=== PATIENT | female | born 1950 | race Caucasian/White ===

== ENCOUNTER 2020-07-01 11:41 | Day surgery (SDC) | payer MEDICARE, OTHER ==
[~2020-07-01] VITALS: Ht 175.3 cm; Wt 99.7 kg
[~2020-07-01 11:41] MED LIST: ELIQUIS5 MG PO; LISI5 PO; LORA1SY PO; MELO7.5 PO; NAPR220 PO; RANI150 PO
[2020-07-01] MEDS ORDERED: TELM20 PO (11:59)
== END 2020-07-01 13:54 | disposition home or self-care (01) ==
LOC: ORSCSDS 11:41
PROVIDERS: Surgery
PROC: 0DBN8ZX Excision of Sigmoid Colon, Via Natural or Artificial Opening Endoscopic, Diagnostic (ICD-10-PCS; principal; 2020-07-01 13:00)
PROC: 0DBH8ZX Excision of Cecum, Via Natural or Artificial Opening Endoscopic, Diagnostic (ICD-10-PCS; principal; 2020-07-01 13:00)
DX: Z12.11 Encounter for screening for malignant neoplasm of colon (principal); D12.0 Benign neoplasm of cecum; D12.5 Benign neoplasm of sigmoid colon; I10 Essential (primary) hypertension; K21.9 Gastro-esophageal reflux disease without esophagitis; E78.00 Pure hypercholesterolemia, unspecified; G47.33 Obstructive sleep apnea (adult) (pediatric); Z87.891 Personal history of nicotine dependence; I48.91 Unspecified atrial fibrillation; E66.01 Morbid (severe) obesity due to excess calories; Z68.33 Body mass index [BMI] 33.0-33.9, adult; R73.03 Prediabetes; Z79.84 Long term (current) use of oral hypoglycemic drugs
CPT/HCPCS: 82947; 88305; J2704; J7120

== ENCOUNTER → 2022-04-11 | Outpatient (CLI) | payer MEDICARE, OTHER ==
[~2022-04-11] MED LIST changes: +TELM20 PO
[2022-04-11 15:44] LABS: Microalb/Creat Ratio UR, Rand Unable to Calculate mg/g (0.000-30.000); Microalbumin, Random Urine <5.000 mg/L (0.000-20.000)
== END | disposition home or self-care (01) ==
LOC: LAB SHORT 13:00
PROVIDERS: Nurse Practitioner Family
DX: E11.9 Type 2 diabetes mellitus without complications (principal)
CPT/HCPCS: 82043; 82570

== ENCOUNTER 2024-08-26 07:17 | Day surgery (SDC) | payer MEDICARE, OTHER ==
[2024-08-26] VITALS (10 sets, daily range): BP systolic 126–158; BP diastolic 74–109
[~2024-08-26] VITALS: Ht 175.3 cm; Wt 97.5 kg
[~2024-08-26 07:17] MED LIST changes: +ASPI325 PO; +CLOP75 PO; +Crestor40 MG PO; +DILT60ER PO; +METO50 PO; +MOBIC15 MG PO; +TRULICITY0.75 MG/01 SQ
[2024-08-26] MEDS ORDERED: NS 500 ML IV ONE (08:41)
[2024-08-26] MEDS ORDERED: Nitroglycerin 2 MG/20 ML BTL ONE (08:42)
[2024-08-26] MEDS ORDERED: Heparin Sodium 1000 Units/ML 10ML MDV ONE (08:42)
[2024-08-26] MEDS ORDERED: NS 1,000 ML IV ONE ×2 (08:42→09:12)
[2024-08-26] MEDS ORDERED: FentaNYL Citrate 50 MCG/ML 2 ML Injection ONE ×2 (09:12→10:06)
[2024-08-26] MEDS ORDERED: Midazolam HCl 1MG / ML 2ML Vial ONE ×2 (09:12→10:06)
[2024-08-26] MEDS ORDERED: Alteplase Recombinant 2 MG / Vial ONE (10:03)
--- NOTE | 2024-08-26 10:36 | NUR ---
PT BACK TO RECOVERY ROOM. DR AUGILAR AT BEDSIDE TO UPDATE PT. PT DEMONSTRATES CORRECT UNDERSTANDING TO KEEP HEAD AND LEGS FLAT. R GROIN SITE SOFT AND NON TENDER. NO BLEEDING OR HEMATOMA NOTED.
[2024-08-26] MEDS ORDERED: ADALAT CC30 M2 PO (10:42)
--- NOTE | 2024-08-26 10:47 | NUR ---
NEW PRESCRIPTION CALLED INTO [facility] PER PT REQUEST. DR AGUILAR IN TO SPEAK WITH PT AND FAMILY. PT ALERT AND ORIENTED.
--- NOTE | 2024-08-26 12:15 | NUR ---
PT SITE ASSESED, SMALL AMOUNT OF OOZE ON BANDAGE BUT SITE SOFT, PT UP TO BATHROOM. UPON RETURN SITE REASSESSED AND ADDITIONAL OOZING NOTED TO DRESSING. PT. LAYED DOWN IN BED. NEW JUAN PLACED TO SITE, SITE HAS SMALL HEMATOMA FELT, PRESSURE HELD FOR APPROX 10 MIN SITE REMAINS UNCHANGED, NO SWELLING OR WORSENING OF SYMPTOMS. PT DENIES BACK PAIN, PULSES UNCHANGED. JUNE RT TO BEDSIDED TO ASSESS WELL. SITE REMAINS UNCHANGED, NO FURTHER OOZING TO JUAN NOTED.
--- NOTE | 2024-08-26 12:59 | NUR ---
R GROIN SITE UNCHANGED. NO BLEEDING, HEMATOMA UNCHANGED. NO PAIN.
--- NOTE | 2024-08-26 13:05 | NUR ---
PT AND FAMILY VERBALIZE D/C INSTRUCTIONS.
--- NOTE | 2024-08-26 13:28 | NUR ---
NO BLEEDING OR CHANGE OF GROIN SITE. PT SAT UP AND GETTING DRESSED. PT FAMILY ASSISTING. IV D/C CATHETER INTACT, PRESSURE DRESSING APPLIED. PT WHEELED OUT OF DEPT WITH D/C PACKET IN HAND. PT REMINDED TO TAKE IT EASY AND HAVE FAMILY DOCK WORKER HER NEW MEDICATION.
== END 2024-08-26 13:32 | disposition home or self-care (01) ==
LOC: MHTC 07:17
DX: I75.023 Atheroembolism of bilateral lower extremities (principal); I73.9 Peripheral vascular disease, unspecified; E78.00 Pure hypercholesterolemia, unspecified; I48.92 Unspecified atrial flutter; I10 Essential (primary) hypertension; G89.29 Other chronic pain; K21.9 Gastro-esophageal reflux disease without esophagitis; Z88.2 Allergy status to sulfonamides; Z88.8 Allergy status to other drugs, medicaments and biological substances; Z79.82 Long term (current) use of aspirin; Z79.899 Other long term (current) drug therapy
CPT/HCPCS: 37224; 37228; 75625; 75716; 75774; 76937; 99152; 99153; C1725; C1760; C1769; C1887; C1894; C2623; J1644; J2250; J2997; J3010; J7030; J7050; Q9967